=== PATIENT | male | born 1955 | race Caucasian/White ===

== ENCOUNTER 2024-05-14 10:45 | Day surgery (SDC) | payer MEDICARE ==
[~2024-05-14] VITALS: Ht 172.7 cm; Wt 102.0 kg
[2024-05-14] VITALS (7 sets, daily range): BP systolic 142–157; BP diastolic 59–73
[~2024-05-14 10:45] MED LIST: ATOR40TA PO; Aspir 8181 MG PO; BASAGLAR K100 UNIT/1 SC; BISA5EC PO; CALCIUM ACETAT667 MG PO; CLOP75 PO; CONSTULOSE10 GM/155 PO; DOCU100 PO; FURO80 PO; HYDRA25 PO; INSULANI; LIDO5TO TOP; LOSA25 PO; METO25ER PO; MIDO5 PO; MIRT15 PO; MULVITB PO; OMEP20ER PO; PREG25 PO; Percocet 5-3251 EACH PO; Vitamin B Comple1 EA PO
[2024-05-14 12:16] LABS: BASOPHILS ABSOLUTE AUTO 0.06 K/mm3 (0.00-0.23); BASOPHILS PERCENT AUTO 1 % (0-2); EOSINOPHILS ABSOLUTE AUTO 0.26 K/mm3 (0.00-0.68); EOSINOPHILS PERCENT AUTO 3 % (0-6); Hematocrit 28.6 % (37.0-53.0); Hemoglobin 9.3 g/dL (13.5-17.5); IMMATURE GRAN ABSOLUTE AUTO 0.02 K/mm3 (0.00-0.10); IMMATURE GRAN PERCENT AUTO 0 % (0-1); LYMPHOCYTES ABSOLUTE AUTO 2.75 K/mm3 (0.84-5.20); LYMPHOCYTES PERCENT AUTO 30 % (21-46); MONOCYTES ABSOLUTE AUTO 0.72 K/mm3 (0.16-1.47); MONOCYTES PERCENT AUTO 8 % (4-13); Mean Corpuscular HGB 31.5 pg (26.0-34.0); Mean Corpuscular HGB Conc 32.5 g/dL (31.5-36.5); Mean Corpuscular Volume 97 fL (80-100); Mean Platelet Volume 10.5 fL (9.1-12.4); NEUTROPHILS ABSOLUTE AUTO 5.47 K/mm3 (1.96-9.15); NEUTROPHILS PERCENT AUTO 59 % (41-73); Platelet Count 192 K/mm3 (150-400); RDW Coefficient Variation 14.3 % (11.7-14.2); RDW Standard Deviation 49.5 fL (35.1-46.3); Red Blood Cell Count 2.95 M/mm3 (4.30-5.90); White Blood Cell Count 9.28 K/mm3 (4.00-11.30)
[2024-05-14 12:18] LABS: Bun/Creatinine Ratio 6.4 (12.0-20.0); Calcium, Blood 9.1 mg/dL (8.5-10.1); Potassium, Blood 5.3 mmol/L (3.5-5.5)
[2024-05-14] MEDS ORDERED: NS 250 ML IV ONE (12:20)
[2024-05-14] MEDS ORDERED: NS 1,000 ML IV ONE ×2 (12:20→12:27)
[2024-05-14] MEDS ORDERED: Heparin Sodium 1000 Units/ML 10ML MDV ONE ×2 (12:20→13:35)
[2024-05-14 12:24] LABS: Creatinine, Blood 9.26 mg/dL (0.60-1.20)
[2024-05-14] MEDS ORDERED: FentaNYL Citrate 50 MCG/ML 2 ML Injection ONE ×2 (12:27→12:53)
[2024-05-14] MEDS ORDERED: Midazolam HCl 1MG / ML 2ML Vial ONE ×2 (12:27→12:53)
[2024-05-14 12:33] LABS: International Normalized Ratio 1.02; Prothrombin Time Results 10.9 Sec (9.7-11.5)
[2024-05-14] MEDS ORDERED: NS 100 ML IV ONE (14:03)
[2024-05-14] MEDS ORDERED: Nitroglycerin 2 MG/20 ML BTL ONE (14:10)
--- NOTE | 2024-05-14 14:45 | NUR ---
report [facility]. states pt had balloons placed knee down on left leg. rt groin site is cdi. no hematoma noted. small dot blood noted in middle of bandage. states with angio seal, pt to be down 2-3 hrs prior to sitting up, states dr madison to d.c in see in person and d.c in couple hours. pt states dialysis [facility] and last on fri. wants to go home for dialysis tomorrow. bed in low position, call lite in reach calls approp.
[2024-05-14] MEDS ORDERED: Ondansetron 4 MG TAB PO PRN (16:05)
[2024-05-14] MEDS ORDERED: FLU VACC TS2024-25(6MOS UP)/PF 45 MCG/0.5 ML SYRINGE IM ONE (16:05)
[2024-05-14] MEDS ORDERED: Prochlorperazine Maleate 5 MG Tab PO PRN (16:05)
[2024-05-14] MEDS ORDERED: Prochlorperazine Edisylate 10 mg Vial IV PRN (16:05)
[2024-05-14] MEDS ORDERED: Ondansetron HCl 2 MG / ML 2ML Vial IV PRN (16:10)
--- NOTE | 2024-05-14 16:25 | NUR ---
dr madison in and dischargeed pt.
--- NOTE | 2024-05-14 17:26 | NUR ---
dr madison in to see pt groin site. discharge pt. i reviewed pt discharge forms. spent time to review femoral site care forms. he signed, copy for chart. pt verbalized understanding meds and instruct. iv pulle intact. tele removed. pt wheeled to door by jaquan at [phone]
== END 2024-05-14 17:28 | disposition home or self-care (01) ==
LOC: MHTC 10:45 → PCU 13:02 → MHTC 17:28
PROVIDERS: Physician Assistant; Radiology Diagnostic Radiology
DX: E11.51 Type 2 diabetes mellitus with diabetic peripheral angiopathy without gangrene (principal); I70.244 Atherosclerosis of native arteries of left leg with ulceration of heel and midfoot; L97.429 Non-pressure chronic ulcer of left heel and midfoot with unspecified severity; I70.245 Atherosclerosis of native arteries of left leg with ulceration of other part of foot; L97.529 Non-pressure chronic ulcer of other part of left foot with unspecified severity; I12.0 Hypertensive chronic kidney disease with stage 5 chronic kidney disease or end stage renal disease; E11.22 Type 2 diabetes mellitus with diabetic chronic kidney disease; N18.6 End stage renal disease; E11.40 Type 2 diabetes mellitus with diabetic neuropathy, unspecified; I25.2 Old myocardial infarction; Z87.891 Personal history of nicotine dependence; Z79.82 Long term (current) use of aspirin; Z79.4 Long term (current) use of insulin; Z79.899 Other long term (current) drug therapy; Z88.5 Allergy status to narcotic agent; Z88.8 Allergy status to other drugs, medicaments and biological substances
CPT/HCPCS: 36415; 75625; 75716; 75774; 76937; 80048; 85025; 85347; 85610; 99152; 99153; C1725; C1760; C1769; C1887; C1894; C9764; C9772; J1644; J2250; J3010; J7030; J7050; Q9967

== ENCOUNTER 2024-10-14 10:51 | Day surgery (SDC) | payer MEDICARE ==
[~2024-10-14] VITALS: Ht 172.7 cm; Wt 102.1 kg
[2024-10-14] VITALS (8 sets, daily range): BP systolic 124–146; BP diastolic 69–79
[2024-10-14] MEDS ORDERED: CALCIUM ACETAT667 MG PO (12:03)
[2024-10-14] MEDS ORDERED: BISA5EC PO (12:03)
[2024-10-14] MEDS ORDERED: DOCU100 PO (12:15)
[2024-10-14] MEDS ORDERED: HUMALOG KW100 UNIT/1 SC (12:15)
[2024-10-14 12:41] LABS: Hematocrit 28.3 % (37.0-53.0); Hemoglobin 9.2 g/dL (13.5-17.5); Mean Corpuscular HGB 30.2 pg (26.0-34.0); Mean Corpuscular HGB Conc 32.5 g/dL (31.5-36.5); Mean Corpuscular Volume 93 fL (80-100); Mean Platelet Volume 10.6 fL (9.1-12.4); Platelet Count 271 K/mm3 (150-400); RDW Standard Deviation 51.7 fL (35.1-46.3); Red Blood Cell Count 3.05 M/mm3 (4.30-5.90); White Blood Cell Count 14.98 K/mm3 (4.00-11.30)
[2024-10-14] MEDS ORDERED: Heparin Sodium 1000 Units/ML 10ML MDV ONE ×2 (12:45→14:19)
[2024-10-14] MEDS ORDERED: NS 1,000 ML IV ONE (12:46)
[2024-10-14] MEDS ORDERED: NS 250 ML IV ONE ×2 (12:46→13:26)
[2024-10-14 12:55] LABS: International Normalized Ratio 1.15; Prothrombin Time Results 12.2 Sec (9.7-11.5)
[2024-10-14 12:58] LABS: Bun/Creatinine Ratio 7.4 (12.0-20.0); Calcium, Blood 8.8 mg/dL (8.5-10.1); Creatinine, Blood 6.66 mg/dL (0.60-1.20); Potassium, Blood 4.4 mmol/L (3.5-5.5)
[2024-10-14] MEDS ORDERED: Midazolam HCl 1MG / ML 2ML Vial ONE ×2 (13:06→13:08)
[2024-10-14] MEDS ORDERED: FentaNYL Citrate 50 MCG/ML 2 ML Injection ONE ×2 (13:07→13:08)
[2024-10-14] MEDS ORDERED: NS 500 ML IV ONE (13:07)
== END 2024-10-14 17:54 | disposition home or self-care (01) ==
LOC: MHTC 10:51
PROVIDERS: Radiology Diagnostic Radiology
DX: E11.51 Type 2 diabetes mellitus with diabetic peripheral angiopathy without gangrene (principal); I70.229 Atherosclerosis of native arteries of extremities with rest pain, unspecified extremity; E11.621 Type 2 diabetes mellitus with foot ulcer; L97.429 Non-pressure chronic ulcer of left heel and midfoot with unspecified severity; E11.610 Type 2 diabetes mellitus with diabetic neuropathic arthropathy; E11.22 Type 2 diabetes mellitus with diabetic chronic kidney disease; I12.9 Hypertensive chronic kidney disease with stage 1 through stage 4 chronic kidney disease, or unspecified chronic kidney disease; N18.6 End stage renal disease; I25.2 Old myocardial infarction; Z79.82 Long term (current) use of aspirin; Z79.899 Other long term (current) drug therapy; Z87.891 Personal history of nicotine dependence; Z88.5 Allergy status to narcotic agent; Z88.8 Allergy status to other drugs, medicaments and biological substances
CPT/HCPCS: 76937; 80048; 85027; 85347; 85610; 99152; 99153; C1725; C1769; C1887; C1894; C2623; J1644; J2250; J3010; J7030; J7040; J7050; Q9967

== ENCOUNTER 2025-05-19 10:15 | Day surgery (SDC) | payer MEDICARE ==
[~2025-05-19] VITALS: Ht 172.7 cm; Wt 95.5 kg
[2025-05-19] VITALS (7 sets, daily range): BP systolic 102–155; BP diastolic 60–88
[~2025-05-19 10:15] MED LIST changes: +HUMALOG KW100 UNIT/1 SC
[2025-05-19] MEDS ORDERED: NS 2,000 ML IV ONE (12:52)
[2025-05-19] MEDS ORDERED: Heparin Sodium 1000 Units/ML 10ML MDV ONE ×2 (12:52→14:05)
[2025-05-19] MEDS ORDERED: NS 250 ML IV ONE (12:52)
[2025-05-19] MEDS ORDERED: Nitroglycerin 2 MG/20 ML BTL ONE (12:57)
[2025-05-19] MEDS ORDERED: FentaNYL Citrate 50 MCG/ML 2 ML Injection ONE (13:15)
[2025-05-19] MEDS ORDERED: Midazolam HCl 1MG / ML 2ML Vial ONE (13:15)
--- NOTE | 2025-05-19 14:38 | NUR ---
PT UPDATED VIA PHONE CALL
--- NOTE | 2025-05-19 15:44 | NUR ---
PT ARRIVES BACK TO RECOVERY ROOM, ALERT AND ORIENTED. BG CHECKED UPON ARRIVAL AND IS 173. PT PROVIDED WITH WATER AND SNACK REQUESTED. PT. HAS ANIGOSEAL TO RIGHT GROIN SITE WNL. VENOUS SHEATH REMAINS IN PLACE FOR IV ACCESS TO RIGHT GROIN. RIGHT NECK HAS GAUZE BANDAGE IN PLACE, NO SWELLING OR OOZING ON DRESSING AT THIS TIME FROM IVC FILTER REMOVAL. PT. VSS AT THIS TIME. CALL LIGHT IN REACH.
--- NOTE | 2025-05-19 17:04 | NUR ---
PT placed in supine position and Venous sheath pulled from Right groin. pressure held until hemostasis was achieved. pt. tolerated well. Right groin remains soft, non tender with no oozing at this time. Discharge instructions reviewed with pt in detail. no further questions at this time. VSS. HERCULES.
--- NOTE | 2025-05-19 17:32 | NUR ---
Pt assisted to get dressed, site remains wnl after getting dressed. Pt assisted into wheel chair, and taken to exit. Pt to drive pt home. VSS upon discharge all belongings returned to pt. DELISA.
== END 2025-05-19 23:00 | disposition home or self-care (01) ==
LOC: MHTC 10:15
DX: I70.244 Atherosclerosis of native arteries of left leg with ulceration of heel and midfoot (principal); L97.429 Non-pressure chronic ulcer of left heel and midfoot with unspecified severity; E11.51 Type 2 diabetes mellitus with diabetic peripheral angiopathy without gangrene; E11.621 Type 2 diabetes mellitus with foot ulcer; I12.0 Hypertensive chronic kidney disease with stage 5 chronic kidney disease or end stage renal disease; N18.6 End stage renal disease; E11.22 Type 2 diabetes mellitus with diabetic chronic kidney disease; E11.40 Type 2 diabetes mellitus with diabetic neuropathy, unspecified; I25.2 Old myocardial infarction; Z87.891 Personal history of nicotine dependence; Z88.5 Allergy status to narcotic agent; Z88.8 Allergy status to other drugs, medicaments and biological substances; Z79.4 Long term (current) use of insulin; Z79.02 Long term (current) use of antithrombotics/antiplatelets; Z79.82 Long term (current) use of aspirin; Z79.899 Other long term (current) drug therapy; Z95.828 Presence of other vascular implants and grafts
CPT/HCPCS: 37193; 75625; 75716; 75774; 76937; 99152; 99153; C1725; C1760; C1769; C1773; C1887; C1894; C9772; J1644; J2250; J3010; J7030; J7050; Q9967

== ENCOUNTER 2025-07-07 11:04 | Day surgery (SDC) | payer MEDICARE | END 2025-07-07 17:45 | disposition home or self-care (01) | LOC: MHTC 11:04 | DX: E11.51 Type 2 diabetes mellitus with diabetic peripheral angiopathy without gangrene (principal); L97.429 Non-pressure chronic ulcer of left heel and midfoot with unspecified severity; I70.221 Atherosclerosis of native arteries of extremities with rest pain, right leg; I70.244 Atherosclerosis of native arteries of left leg with ulceration of heel and midfoot; I13.2 Hypertensive heart and chronic kidney disease with heart failure and with stage 5 chronic kidney disease, or end stage renal disease; E11.22 Type 2 diabetes mellitus with diabetic chronic kidney disease; N18.6 End stage renal disease; I50.22 Chronic systolic (congestive) heart failure; I25.2 Old myocardial infarction; E11.40 Type 2 diabetes mellitus with diabetic neuropathy, unspecified; I35.0 Nonrheumatic aortic (valve) stenosis; I42.9 Cardiomyopathy, unspecified; I25.10 Atherosclerotic heart disease of native coronary artery without angina pectoris; E11.610 Type 2 diabetes mellitus with diabetic neuropathic arthropathy; Z87.891 Personal history of nicotine dependence; Z79.02 Long term (current) use of antithrombotics/antiplatelets; Z79.4 Long term (current) use of insulin; Z79.82 Long term (current) use of aspirin; Z79.899 Other long term (current) drug therapy; Z88.5 Allergy status to narcotic agent; Z88.8 Allergy status to other drugs, medicaments and biological substances; Z95.828 Presence of other vascular implants and grafts; Z99.2 Dependence on renal dialysis ==